=== PATIENT | male | born 1995 | race Caucasian/White ===

== ENCOUNTER 2017-05-16 07:48 | Inpatient (IN) | payer OTHER ==
[~2017-05-16] VITALS: Ht 190.5 cm; Wt 65.8 kg
[2017-05-16] MEDS ORDERED: DIAZEPAM 5 MG TABLET PO PRN (22:00)
[2017-05-16] MEDS ORDERED: DIAZEPAM 10 MG TABLET PO PRN ×2 (22:00)
[2017-05-16] MEDS ORDERED: MIRALAX 17 GM POWD.PACK PO PRN (22:00)
[2017-05-16] MEDS ORDERED: ONDANSETRON 4 MG/2 ML VIAL IM PRN (22:00)
[2017-05-16] MEDS ORDERED: DICYCLOMINE HCL 20 MG TABLET PO PRN (22:00)
[2017-05-16] MEDS ORDERED: ACETAMINOPHEN 325 MG TABLET PO PRN (22:00)
[2017-05-16] MEDS ORDERED: LORAZEPAM 2 MG/1 ML VIAL IM PRN (22:00)
[2017-05-16] MEDS ORDERED: IBUPROFEN 600 MG TABLET PO PRN (22:00)
[2017-05-16] MEDS ORDERED: CLONIDINE HCL 0.1 MG TABLET PO PRN (22:00)
[2017-05-16] MEDS ORDERED: BUPRENORPHINE HCL 2 MG TAB.SUBL SL PRN (22:00)
[2017-05-16] MEDS ORDERED: DOCUSATE SODIUM 250 MG CAPSULE PO PRN (22:00)
[2017-05-16] MEDS ORDERED: ONDANSETRON ODT 4 MG TAB.RAPDIS SL PRN (22:00)
[2017-05-16] MEDS ORDERED: MAGNESIUM HYDROXIDE 30 ML LIQUID UDC PO PRN (22:00)
[2017-05-16] MEDS ORDERED: MAG HYDROX/AL HYDROX/SIMETH 30 ML LIQUID UDC PO PRN (22:00)
[2017-05-16] MEDS ORDERED: LOPERAMIDE HCL 2 MG CAPSULE PO PRN ×2 (22:00)
[2017-05-16] MEDS ORDERED: diphenhydrAMINE 50 MG CAPSULE PO PRN (22:00)
--- NOTE | 2017-05-16 22:15 | NUR ---
Pre-Admission Pt is a 22 y/o male, seen at intake, AAOx4, no SOB with anxiety noted at this time. Discussed with patient the admission policies of the unit. Patient is coherent and able to respond to questions appropriately. Pt is ambulatory with steady gait. Vital signs taken and as follows: BP: 102/67, P: 74, R: 18, O2: 95%, T: 98. Pt verbalized understanding of instructions and teachings regarding disposal of narcotic and other controlled home medications, unit protocols such as taking of vital signs Q4H and handling and disposal of contraband. Will continue with admission upon pts arrival on the unit.
[2017-05-16 22:25] VITALS: BP 102/67
--- NOTE | 2017-05-16 22:25 | NUR ---
Admission Note Pt is a 22 y/o male admitted on 05/16/17 for Opiate/Benzo dependence, arrived on the unit at 2225. Pt has NKA, denies history of seizures. Pt was able to provide UDS. Upon admission CIWA 5 & COWS 5, BP: 102/67, P: 74, R: 18, O2: 95%, T: 98., PA 4/10 (body aches). Weight 145, height 63. Pt reports he does not have a PCP, smokes about 1-3 cigarettes/daily, denies being hospitalized within past 30 days. Pt is able to understand and respond to all questions pertaining to his hospitalization. Substance Abuse History is as follows: 1.Fentanyl (PO/smoke) 20-30 pills/daily, last intake of 15 pills on 05/16/17, at this rate since December 2016. 2.Xanax 4-6mg/daily, last intake of 1mg on 05/16/17, at this rate since December 2016. 3.Marijuana 2 joints/daily, last intake of 1 joint on 05/16/2017, at this rate since December 2016. Pt reports he has been taking oxys and fentanyl together, but has been taking Fentanyl only for the past 2 years. Pts longest sober period for 2 weeks in December 2016. Pt states his substance abuse began in 2014 when his father due to cancer in 2012. Treatment history: [facility] for 3-4 days in 2014 and December 2016. PMH: Anxiety and depression. Pt denies any hx of seizures. Pt did not bring any medications from [facility]. Upon assessment, pt is AAOx4, pt is mildly intoxicated, presents with anxiety, body aches, skin is flushed, and has mild chills. Respirations even and unlabored. Denies SOB, chest pain, N/V/D. Bowel sounds active x 4, abdomen soft. PERRLA. Skin intact, no open wounds noted. Pt denies SI/HI. Educational information provided and left at bedside. Pt oriented to room and encouraged to notify staff with any concerns. Safety measures in place. Call light within reach, side rails up x 2, bed locked and in low position. Will continue to monitor.
[2017-05-16] MEDS ORDERED: PHENOBARBITAL 60 MG TABLET PO SCH (23:00)
[2017-05-16 23:37] LABS: *AMPHETAMINE, URINE NEGATIVE (NEGATIVE); *BARBITURATE, URINE NEGATIVE (NEGATIVE); *CANNABINOID, URINE POSITIVE (NEGATIVE); *COCCAINE, URINE NEGATIVE (NEGATIVE); *OPIATE, URINE NEGATIVE (NEGATIVE); *PHENCYCLIDINE SCREEN,URINE NEGATIVE (NEGATIVE)
[2017-05-16] MEDS: METHOCARBAMOL 750 MG TABLET PO PRN (23:49)
--- NOTE | 2017-05-16 23:49 | NUR ---
PRN Administration CIWA 5 and COWS 5. Pt reports muscle aches, mild chills, irritability, skin is clammy/flushed. Robaxin 750mg PRN, Benadryl 50mg PRN and Phenobarital 90mg administered as scheduled. Safety measures in place, will continue to monitor.
[2017-05-17] VITALS: BP 101/65
[2017-05-17] MEDS ORDERED: METHOCARBAMOL 750 MG TABLET ONE (00:02)
[2017-05-17] MEDS ORDERED: PHENOBARBITAL 60 MG TABLET ONE (00:02)
[2017-05-17] MEDS ORDERED: diphenhydrAMINE 50 MG CAPSULE ONE (00:03)
--- NOTE | 2017-05-17 00:49 | NUR ---
PRN Reassessment Upon reassessment, pt is in bed, eyes closed resting, respirations even/unlabored. Safety measures in place, will continue to monitor.
[2017-05-17 03:00] LABS: ALANINE AMINOTRANSFERASE 15 U/L (16-63); ALKALINE PHOSPHATASE 65 U/L (50-136); ASPARTATE AMINOTRANSFERASE 14 U/L (15-37); BILIRUBIN,TOTAL 0.3 mg/dL (0.2-1.0); CARBON DIOXIDE 30 mmol/L (21-32); CHLORIDE 103 mmol/L (98-107); CREATININE 0.8 mg/dL (0.6-1.3); GLUCOSE 97 mg/dL (74-106); MAGNESIUM 2.1 mg/dL (1.8-2.4); POTASSIUM 4.1 mmol/L (3.5-5.1); TOTAL PROTEIN, SERUM 6.7 g/dL (6.4-8.2); UREA NITROGEN, BLOOD 15 mg/dL (7-18)
[2017-05-17 03:10] LABS: ETHANOL < 3 MG/DL (0-0)
[2017-05-17 03:27] LABS: BASOPHILS % (AUTO) 0.2 % (0.0-2.0); EOSINOPHILS # (AUTO) 0.2 K/uL (0.0-0.7); EOSINOPHILS % (AUTO) 1.9 % (0.0-7.0); HEMOGLOBIN 12.4 G/DL (14.0-18.0); LYMPHOCYTES # (AUTO) 2.9 K/UL (0.8-4.8); LYMPHOCYTES % (AUTO) 30.1 % (20.5-51.5); MEAN CORPUSCULAR HEMOGLOBIN 28.1 UUG (27.0-31.0); MEAN CORPUSCULAR HGB CONC 33 g/dL (32.0-37.0); MEAN CORPUSCULAR VOLUME 85.9 FL (82.0-92.0); MONOCYTES # (AUTO) 0.7 K/UL (0.1-1.30); MONOCYTES % (AUTO) 7.7 % (0.0-11.0); NEUTROPHILS # (AUTO) 5.8 K/UL (1.8-8.9); NEUTROPHILS % (AUTO) 60.1 % (38.5-71.5); PLATELET COUNT (AUTO) 264 K/UL (150-450); RED BLOOD CELL COUNT(AUTO) 4.43 MIL/UL (4.7-6.1); WHITE BLOOD COUNT (AUTO) 9.6 K/UL (4.0-11.2)
[2017-05-17 04:00] VITALS: BP 96/73
--- NOTE | 2017-05-17 04:00 | NUR ---
CIWA/COWS deferred d/t pt sleeping, to assess while pt is awake as ordered. BP 96/73, pulse 79, resp 97% room air, resp 16, temp 98, no pain Safety measures in place, will continue to monitor.
--- NOTE | 2017-05-17 07:00 | NUR ---
End of Shift Pt is a 22 year old male admitted for Opiate/Benzo dependence. Pt reported using Fentanyl (PO/smoke) 20-30 pills/daily, Xanax 4-6mg/daily, Marijuana 2 joints/daily. PMH: Anxiety and Depression. NKA, regular diet, fall/seizure precautions ( no hx of seizures) and full code. During shift, CIWA 5 and COWS 5 Phenobarbital 90mg, Robaxin 750mg PRN and Benadryl 50mg PRN administered as ordered. Pt slept for 7 hours, intake of 500 ml PO, voids x1 and stool x0. Safety measures in place, call light within reach, side rails up x2, bed locked and in low position. Endorsed to day shift nurse.
--- NOTE | 2017-05-17 07:15 | NUR ---
Start of Shift Endorsement received from nightshift nurse. Pt is a 22 y/o male admitted for Fentanyl and Xanax dependence. Pt has been placed on a 5 day Subutex and 5 day Phenobarbital taper. Pt is set to began both tapers today. Pt received PRN Benadryl and Robaxin during nightshift. Pt is moderately withdrawing AEB COWS 5, CIWA 5 at midnight. PT reports sleeping 7 hours. VS WNL. Full Code. PT is alert and oriented x4. Pt is in STABLE condition at this time. Remains compliant with medication and diet regimen. All needs have been met, All safety measures in place per hospital policy. Bed in lowest position, side rails up x2, call-light within reach. Will continue to monitor
[2017-05-17 08:00] VITALS: BP 107/66
[2017-05-17] MEDS: BUPRENORPHINE HCL 2 MG TAB.SUBL SL SCH ×4 (08:34→21:18)
[2017-05-17] MEDS ORDERED: PHENOBARBITAL 60 MG TABLET PO SCH (09:00)
[2017-05-17] MEDS ORDERED: TUBERCULIN,PURIF.PROT.DERIV. 5 TU/0.1 ML TEST ID ONE (09:00)
[2017-05-17] MEDS ORDERED: GABAPENTIN 300 MG CAPSULE PO SCH (09:00)
[2017-05-17] MEDS ORDERED: KETOROLAC TROMETHAMINE 30 MG INJ IM ONE (11:00)
[2017-05-17] MEDS ORDERED: LORAZEPAM 1 MG TABLET PO ONE (11:00)
[2017-05-17] MEDS ORDERED: KETOROLAC TROMETHAMINE 30 MG INJ IM PRN (11:00)
[2017-05-17] MEDS ORDERED: BUPRENORPHINE HCL 2 MG TAB.SUBL SL ONE (11:00)
[2017-05-17] MEDS: METHOCARBAMOL 750 MG TABLET PO PRN (11:20)
[2017-05-17 12:00] VITALS: BP 103/65
[2017-05-17] MEDS: PHENOBARBITAL 60 MG TABLET PO SCH ×3 (13:56→21:18)
[2017-05-17] MEDS: GABAPENTIN 300 MG CAPSULE PO SCH ×2 (15:12→21:18)
[2017-05-17] MEDS: BACLOFEN 20 MG TABLET PO SCH ×2 (15:12→21:17)
[2017-05-17 16:00] VITALS: BP 126/76
--- NOTE | 2017-05-17 18:49 | NUR ---
End of Shift Endorsement given to nightshift nurse. Pt is a 22 y/o male admitted for Fentanyl and Xanax dependence. Pt has been placed on a 5 day Subutex and 5 day Phenobarbital taper. Pt is set to began both tapers today. Pt received PRN Benadryl and Robaxin during nightshift. Pt is moderately withdrawing AEB COWS 13, CIWA 9 at 1600. PT spent most of the day in his room. Pt participated in one group. Educated pt on diet and medication regimen. educated pt on withdrawal symptoms and symptom management. Intake: 1400ml, Void x3, BM x1. VS WNL. Full Code. PT is alert and oriented x4. Pt is in STABLE condition at this time. Remains compliant with medication and diet regimen. All needs have been met, All safety measures in place per hospital policy. Bed in lowest position, side rails up x2, call-light within reach. Will continue to monitor
[2017-05-17 20:00] VITALS: BP 117/76
--- NOTE | 2017-05-17 20:00 | NUR ---
Start of Shift Pt is a 22 year old male admitted for Opiate/Benzo dependence. Pt reported using Fentanyl (PO/smoke) 20-30 pills/daily, Xanax 4-6mg/daily, Marijuana 2 joints/daily. PMH: Anxiety and Depression. NKA, regular diet, fall/seizure precautions ( no hx of seizures) and full code. Upon assessment, pt reports feeling anxious and irritable, pt is restless, skin flushed/moist, reports muscle/joint aches, runny nose/tearing, stomach cramps with tremors felt. Respirations are even/unlabored, denies SOB/chest pain, denies n/v/d, medications due. Safety measures in place, call light within reach, side rails up x2, bed locked and in low position. Will continue to monitor.
[2017-05-18] VITALS: BP 102/68
--- NOTE | 2017-05-18 | NUR ---
CIWA/COWS deferred d/t pt sleeping, to assess while pt is awake as ordered. BP 102/68, pulse 79, resp 96% room air, resp 16, temp 98.2, no pain Safety measures in place, will continue to monitor.
--- NOTE | 2017-05-18 04:00 | NUR ---
ISRRAEL/ADEOLA deferred d/t pt sleeping, to assess while pt is awake as ordered. Pt refused to be woken up for [address], will continue to monitor.
--- NOTE | 2017-05-18 07:00 | NUR ---
End of Shift Pt is a 22 year old male admitted for Opiate/Benzo dependence. Pt reported using Fentanyl (PO/smoke) 20-30 pills/daily, Xanax 4-6mg/daily, Marijuana 2 joints/daily. PMH: Anxiety and Depression. NKA, regular diet, fall/seizure precautions ( no hx of seizures) and full code. During shift, pt reported feeling anxious and irritable, restless, skin flushed/moist, reports muscle/joint aches, runny nose/tearing, stomach cramps with tremors felt- scheduled taper medications administered, COWS 14 and CIWA 11. No PRN medications administered during shift. Pt slept for 6 hours, intake of 1100ml PO, voids x2 and stool x0. Safety measures in place, call light within reach, side rails up x2, bed locked and in low position. Endorsed to day shift nurse.
--- NOTE | 2017-05-18 07:16 | NUR ---
Start of Shift Endorsement received from nightshift nurse. Pt is a 22 y/o male admitted for Fentanyl and Xanax dependence. Pt has been placed on a 5 day Subutex and 5 day Phenobarbital taper. Pt is set to began both tapers today. Pt did not receive any PRN medications. Pt is experiencing moderate to severe AEB COWS 14, CIWA 11 at 1999. PT reports sleeping 6 hours. VS WNL. Full Code. PT is alert and oriented x4. Pt is in STABLE condition at this time. Remains compliant with medication and diet regimen. All needs have been met, All safety measures in place per hospital policy. Bed in lowest position, side rails up x2, call-light within reach. Will continue to monitor
[2017-05-18 08:00] VITALS: BP 109/62
[2017-05-18] MEDS: BACLOFEN 20 MG TABLET PO SCH (09:00)
[2017-05-18] MEDS ORDERED: BUPRENORPHINE HCL 2 MG TAB.SUBL SL SCH (09:00)
[2017-05-18] MEDS ORDERED: PHENOBARBITAL 60 MG TABLET PO SCH (09:00)
[2017-05-18] MEDS: GABAPENTIN 300 MG CAPSULE PO SCH (09:00)
--- NOTE | 2017-05-18 10:14 | NUR ---
AMA Note Pt left AMa, Pt refused to comply with treatment plan. Pt educated about the risks and consequences of leaving AMA, pt verbalized understanding but was adamant about leaving. Multiple staff members including the doctor, patient advocates and nurses attempted to reason with the pt without any success. VS WNL. Skin intact, pt denies any suicidal or homicidal ideations. Pt psychiatrist and MD were notified and aware. PT was given a list of community resources, AMA forms explained and signed. All belongings returned to PT. Pt did not have any home medications. PT left facility AMA on 05/18/17 at 1014
[2017-05-19] MEDS ORDERED: PHENOBARBITAL 60 MG TABLET PO SCH (09:00)
[2017-05-19] MEDS ORDERED: BUPRENORPHINE HCL 2 MG TAB.SUBL SL SCH ×2 (09:00→15:00)
[2017-05-20] MEDS ORDERED: PHENOBARBITAL 60 MG TABLET PO SCH (09:00)
[2017-05-20] MEDS ORDERED: BUPRENORPHINE HCL 2 MG TAB.SUBL SL SCH (09:00)
[2017-05-21] MEDS ORDERED: PHENOBARBITAL 60 MG TABLET PO SCH (09:00)
[2017-05-21] MEDS ORDERED: BUPRENORPHINE HCL 2 MG TAB.SUBL SL SCH (09:00)
[2017-05-22] MEDS ORDERED: PHENOBARBITAL 60 MG TABLET PO SCH (09:00)
[2017-05-22] MEDS ORDERED: BUPRENORPHINE HCL 2 MG TAB.SUBL SL SCH (09:00)
== END 2017-05-18 10:15 | disposition left against medical advice (07) | DRG 894 ==
LOC: SRC 21:23
PROVIDERS: ADMIT Internal Medicine; ATTEND Internal Medicine
PROC: HZ2ZZZZ Detoxification Services for Substance Abuse Treatment (ICD-10-PCS; principal; 2017-05-16)
PROC: HZ31ZZZ Individual Counseling for Substance Abuse Treatment, Behavioral (ICD-10-PCS; 2017-05-18)
DX: F11.23 Opioid dependence with withdrawal (principal); F12.20 Cannabis dependence, uncomplicated; F13.232 Sedative, hypnotic or anxiolytic dependence with withdrawal with perceptual disturbance; F41.9 Anxiety disorder, unspecified; G47.00 Insomnia, unspecified; Z81.1 Family history of alcohol abuse and dependence; Z83.3 Family history of diabetes mellitus; Z82.49 Family history of ischemic heart disease and other diseases of the circulatory system; F32.9 Major depressive disorder, single episode, unspecified; F17.210 Nicotine dependence, cigarettes, uncomplicated
CPT/HCPCS: 80307; 80349; 83735; 85025; 86592; 86705; 86803; 87340; 87806; G0480; J1885; J8499; Q0163